=== PATIENT | female | born 1965 | race Two or more races ===

== ENCOUNTER 2024-04-06 11:57 | Emergency (ER) | payer MEDICAID, OTHER ==
[~2024-04-06] VITALS: Ht 167.6 cm; Wt 80.2 kg
[2024-04-06] MEDS ORDERED: IBUP-1456 PO (13:36)
[2024-04-06 13:41] VITALS: BP 148/87; PULSE 87; RESP 18; TEMP 98.6; O2SAT 98
== END 2024-04-06 13:44 | disposition home or self-care (01) ==
LOC: ER 11:57
DX: S20.211A Contusion of right front wall of thorax, initial encounter (principal); F17.210 Nicotine dependence, cigarettes, uncomplicated; V49.9XXA Car occupant (driver) (passenger) injured in unspecified traffic accident, initial encounter; W22.10XA Striking against or struck by unspecified automobile airbag, initial encounter; Y93.89 Activity, other specified; Y92.488 Other paved roadways as the place of occurrence of the external cause; Y99.8 Other external cause status
CPT/HCPCS: 71046

== ENCOUNTER 2024-08-29 16:08 | Emergency (ER) | payer MEDICAID, OTHER ==
[~2024-08-29] VITALS: Ht 167.6 cm; Wt 81.2 kg
[~2024-08-29 16:08] MED LIST: IBUP-1456 PO
[2024-08-29] MEDS ORDERED: TRAM-626 PO (17:16)
--- NOTE | 2024-08-29 17:21 | ED.PDOC ---
History of Present Illness HPI Comments 59-year-old female who comes in with chief complaint of right-sided back pain. The pain started yesterday as she was playing with her granddaughter. The pain is now radiating somewhat down the right leg. The patient denies any nausea, vomiting or diarrhea. The patient states that she went to work and seems to aggravate it. The patient denies any other complaints at this time. Chief Complaint: Lower Extremity Time Seen by MD: 16:57 Primary Care Provider: NONE Reviewed Notes: Nurses Notes, Medications, Allergies (No allergies to medications) Allergies: Coded Allergies: NO KNOWN ALLERGIES (Unverified , 04/06/24) Home Meds Active Scripts Tramadol HCl (Tramadol HCl) 50 Mg Tab, 50 MG PO Q12HP PRN for 7 Days, #14 TAB Prov:DANNY WALDEN MD 08/29/24 Ibuprofen (Ibuprofen) 800 Mg Tab, 1 TAB PO TID, #30 TAB Prov:HIGINIO QUINTERO 04/06/24 Information Source: Patient Mode of Arrival: Ambulatory Severity: Mild Timing: Days Duration: Since onset Prehospital treatment: None Location: Right buttocks pain Past Medical History PAST MEDICAL HISTORY: HTN Surgical History: Denies all surgeries ZINC PLATE GRAINER History: No Pertinent ZINC PLATE GRAINER History Family History Family History: Family hx of HTN Social History Smoker: Other (VAPE) Alcohol: Denies ETOH Use Drugs: Denies Drug Use Lives In: Home Constitutional: denies: chills, diaphoresis, fatigue, fever, malaise, sweats, weakness, others EENTM: denies: blurred vision, double vision, ear bleeding, ear discharge, ear drainage, ear pain, ear ringing, eye pain, eye redness, hearing loss, mouth faith n, mouth swelling, nasal discharge, nose bleeding, nose congestion, nose pain, photophobia, tearing, throat pain, throat swelling, voice changes, others Respiratory: denies: cough, hemoptysis, orthopnea, SOB at rest, shortness of breath, SOB with excertion, stridor, wheezing, others Cardiovascular: denies: chest pain, dizzy spells, diaphoresis, Dyspnea on exertion, edema, irregular heart beat, left arm pain, lightheadedness, palpitations, PND, syncope, others Gastrointestinal: denies: abdomen distended, abdominal pain, blood streaked bowels, constipated, diarrhea, dysphagia, difficulty swallowing, hematemesis, melena, nausea, poor appetite, poor fluid intake, rectal bleeding, rectal pain, vomiting, others Genitourinary: denies: abnormal vagina bleeding, burning, dyspareunia, dysuria, flank pain, frequency, hematuria, incontinence, pain, , vagina discharge, urgency, others Neurological: denies: dizziness, fainting, headache, left sided numbness, left sided weakness, numbness, paresthesia, pre-existing deficit, right sided numbness, right sided weakness, seizure, speech problems, tingling, tremors, weakness, others Musculoskeletal: reports: back pain; denies: gout, joint pain, joint swelling, muscle pain, muscle stiffness, neck pain, others Integumetry: denies: bruises, change in color, change in hair/nails, dryness, laceration, lesions, lumps, rash, wounds, others Allergic/Immunocompromised: denies: Difficulty Healing, Frequent Infections, Hives, Itching, others Hematologic/Lymphatic: denies: anemia, blood clots, easy bleeding, easy bruisin g, swollen glands, others Endocrine: denies: excessive hunger, excessive sweating, excessive thirst, excessive urination, flushing, intolerance to cold, intolerance to heat, unexplained weight gain, unexplained weight loss, others Psychiatric: denies: anxiety, bipolar disorder, depression, hopeless, panic disorder, schizophrenia, sleepless, suicidal, others Physical Exam General Appearance: No Apparent Distress HEENT: Normal ENT Inspection, Pharynx Normal, TMs Normal Neck: Full Range of Motion, Non-Tender, Normal, Normal Inspection Respiratory: Chest Non-Tender, Lungs Clear, No Accessory Muscle Use, No Respiratory Distress, Normal Breath Sounds Cardiovascular: No Edema, No JVD, No Murmur, No Gallop, Normal Peripheral Pul ses, Regular Rate/Rhythm Breast Exam: Deferred Gastrointestinal: No Organomegaly, Non Tender, No Pulsatile Mass, Normal Bowel Sounds, Soft Genitalia: Deferred Pelvic: Deferred Rectal: Deferred Extremities: No calf tenderness, Normal capillary refill, No pedal edema, Tender (Tenderness to the right buttocks area) Musculoskeletal : Apperance: Normal Neurologic: Alert, stitch bonding machine tender II-XII nml as Tested, No Motor Deficits, Normal Affect, Normal Mood, No Sensory Deficits Cerebellar Function: Normal Reflexes: Normal Skin: Dry, Normal Color, Warm Lymphatic: No Adenopathy Was a procedure done? Was a procedure done?: No Differential Dx Considerations may include: Sciatica, musculoskeletal pain X-Ray, Labs, Meds, VS Vital Signs Date Time Temp Pulse Resp B/P (MAP) Pulse Ox O2 Delivery O2 Flow Rate FiO2 08/29/24 16:21 97.7 103 18 169/95 (119) 95 The patient was given Toradol 60 mg IM The patient was being discharged The patient will follow up with the primary care doctor The patient will return to the emergency department's the condition worsens. Time of 1ST Reevaluation: 17:20 Reevaluation 1ST: Improved Patient Education/Counseling: Diagnosis, Treatment, Prognosis, Need For Follow Up Family Education/Counseling: No Family Present Departure 1 Departure Time of Disposition: 17:20 Impression: Primary Impression: Sciatica Qualified Codes: M54.31 - Sciatica, right side Disposition: HOME / SELF CARE / HOMELESS Condition: Fair e-Prescriptions Tramadol HCl (Tramadol HCl) 50 Mg Tab 50 MG PO Q12HP PRN for 7 Days, #14 TAB Prov: DANNY WALDEN MD 08/29/24 Discharged With: Self Critical Care Note Critical Care Time?: No Stability Stability form required: No Heart Score Heart Score: Heart Score Response (Comments) Value History N/A 0 EKG N/A 0 Age N/A 0 Risk Factors N/A 0 Troponin N/A 0 Total 0 DANNY WALDEN MD Aug 29, 2024 17:21
[2024-08-29] MEDS: KETOROLAC TROMETH 60MG/2ML VIAL IM ONE (17:59)
[2024-08-29] MEDS: cloNIDine HCL 0.1 MG TAB PO ONE (18:19)
[2024-08-29 19:26] VITALS: BP 125/82; PULSE 94; RESP 18; TEMP 97.4; O2SAT 96
== END 2024-08-29 19:31 | disposition home or self-care (01) ==
LOC: ER 16:08
DX: M54.30 Sciatica, unspecified side (principal); I10 Essential (primary) hypertension; F17.290 Nicotine dependence, other tobacco product, uncomplicated
CPT/HCPCS: 96372; 99283; J1885

== ENCOUNTER 2025-03-04 08:49 | Inpatient (IN) | payer MEDICAID, OTHER ==
[~2025-03-04] VITALS: Ht 167.6 cm; Wt 77.7 kg
[~2025-03-04 08:49] MED LIST changes: +TRAM-626 PO
[2025-03-04 09:57] LABS: Hematocrit 46.1 % (36.0-46.0); Hemoglobin 16.1 g/dL (12.2-16.2); Mean Corpuscular Hemoglobin 31.4 pg (28.0-32.0); Mean Corpuscular Volume 89.7 fL (80.0-100.0); Nucleated Red Blood Cells % 0.1 %
--- NOTE | 2025-03-04 09:59 | ED.PDOC ---
REFERRAL COORDINATOR HPI Comments This is a 59 year old female presenting to the ED with chief complaint of vaginal bleeding. Patient reports that she started to experience vaginal bleeding after sexual activity over the past 2 days. Patient relays that her BP has also been running high, noting that she ran out of BP medication a few weeks ago. Patient denies any chest pain, SOB, dizziness, N/V, weakness, or headache. Chief Complaint: Vaginal Bleed Time Seen by MD: 09:57 Reviewed Notes: Nurses Notes, Financial Business Analyst Notes, Allergies Allergies: Coded Allergies: NO KNOWN ALLERGIES (Unverified , 04/06/24) Home Meds Active Scripts Nitrofurantoin Monohydrate Mac (Macrobid) 100 Mg Cap, 100 MG PO BID for 5 Days, #10 CAP Prov:ERIN ISLAS MD 03/04/25 Amlodipine Besylate (NORVASC TABLET) 5 Mg Tb, 1 TAB PO DAILY for 10 Days, #10 TAB 5 Refills Prov:ERIN ISLAS MD 03/04/25 Tramadol HCl (Tramadol HCl) 50 Mg Tab, 50 MG PO Q12HP PRN for 7 Days, #14 TAB Prov:DANNY WALDEN MD 08/29/24 Ibuprofen (Ibuprofen) 800 Mg Tab, 1 TAB PO TID, #30 TAB Prov:HIGINIO QUINTERO 04/06/24 Information Source: Patient Mode of Arrival: Ambulatory Timing: Days Prehospital treatment: None Severity: Mild Vaginal Discharge: None Vaginal Lesions: None Bleeding Quality: Bright Red Onset Of Mass/Bleeding: Following [place] Sexual Activity: Sexually Active Last Consensual [place]: Days Control: None Associated Signs and Symptoms: Vaginal Bleeding Past Medical History PAST MEDICAL HISTORY: HTN Surgical History: Denies all surgeries PRECAST MOLDER History: No Pertinent PRECAST MOLDER History Family History Family History: Family hx of HTN Social History Smoker: Other Alcohol: Denies ETOH Use Drugs: Denies Drug Use Lives In: Home Constitutional: denies: chills, diaphoresis, fatigue, fever, malaise, sweats, weakness, others EENTM: denies: blurred vision, double vision, ear bleeding, ear discharge, ear drainage, ear pain, ear ringing, eye pain, eye redness, hearing loss, mouth pain, mouth swelling, nasal discharge, nose bleeding, nose congestion, nose pain, photophobia, tearing, throat pain, throat swelling, voice changes, others Respiratory: denies: cough, hemoptysis, orthopnea, SOB at rest, shortness of breath, SOB with excertion, stridor, wheezing, others Cardiovascular: denies: chest pain, dizzy spells, diaphoresis, Dyspnea on exertion, edema, irregular heart beat, left arm pain, lightheadedness, palpitations, PND, syncope, others Gastrointestinal: denies: abdomen distended, abdominal pain, blood streaked bowels, constipated, diarrhea, dysphagia, difficulty swallowing, hematemesis, melena, nausea, poor appetite, poor fluid intake, rectal bleeding, rectal pain, vomiting, others Genitourinary: reports: abnormal vagina bleeding; denies: burning, dyspareunia, dysuria, flank pain, frequency, hematuria, incontinence, pain, , vagina discharge, urgency, others Neurological: denies: dizziness, fainting, headache, left sided numbness, left sided weakness, numbness, paresthesia, pre-existing deficit, right sided numbness, right sided weakness, seizure, speech problems, tingling, tremors, weakness, others Musculoskeletal: denies: back pain, gout, joint pain, joint swelling, muscle pain, muscle stiffness, neck pain, others Integumetry: denies: bruises, change in color, change in hair/nails, dryness, laceration, lesions, lumps, rash, wounds, others Allergic/Immunocompromised: denies: Difficulty Healing, Frequent Infections, Hives, Itching, others Hematologic/Lymphatic: denies: anemia, blood clots, easy bleeding, easy bruising, swollen glands, others Endocrine: denies: excessive hunger, excessive sweating, excessive thirst, excessive urination, flushing, intolerance to cold, intolerance to heat, unexplained weight gain, unexplained weight loss, others Psychiatric: denies: anxiety, bipolar disorder, depression, hopeless, panic disorder, schizophrenia, sleepless, suicidal, others All Other Systems: Reviewed and Negative Physical Exam General Appearance: Moderate Distress, Normal HEENT: Normal ENT Inspection, Pharynx Normal, TMs Normal Neck: Full Range of Motion, Non-Tender, Normal, Normal Inspection Respiratory: Chest Non-Tender, Lungs Clear, No Accessory Muscle Use, No Respiratory Distress, Normal Breath Sounds Cardiovascular: No Edema, No JVD, No Murmur, No Gallop, Normal Peripheral Pulses, Regular Rate/Rhythm Breast Exam: Deferred Gastrointestinal: No Organomegaly, Non Tender, No Pulsatile Mass, Normal Bowel Sounds, Soft Genitalia: Deferred Pelvic: Deferred Rectal: Deferred Extremities: No calf tenderness, Normal capillary refill, Normal inspection, Normal range of motion, Non-tender, No pedal edema Musculoskeletal : Apperance: Normal Neurologic: Alert, vp ad products and planning II-XII nml as Tested, No Motor Deficits, Normal Affect, Normal Mood, No Sensory Deficits Cerebellar Function: Normal Reflexes: Normal Skin: Dry, Normal Color, Warm Peripheral Pulses: 3+ Radial (R), 3+ Radial (L) Lymphatic: No Adenopathy Was a procedure done? Was a procedure done?: No Differential Diagnosis (PRECAST MOLDER) Vaginal Bleeding: Menorrhagia, Menometrorrhagia, Menstrual Bleeding, Myomatous Uterus X-Ray, Labs, Meds, VS Vital Signs Date Time Temp Pulse Resp B/P (MAP) Pulse Ox O2 Delivery O2 Flow Rate FiO2 03/04/25 13:18 187/117 03/04/25 11:50 195/135 (155) 03/04/25 11:48 195/135 03/04/25 11:44 98.5 91 15 196/113 (140) 95 98.5 03/04/25 09:23 201/123 (149) 03/04/25 09:19 201/123 03/04/25 09:14 98.0 99 15 202/131 (154) 96 98.0 03/04/25 08:53 98.0 99 16 215/138 98 98.0 Lab Test 03/04/25 10:47 03/04/25 09:37 03/04/25 09:00 Range/Units Troponin I High Sensitivity 11 10 </=34 ng/L White Blood Count 6.2 4.4-10.8 10^3/uL Red Blood Count 5.14 4.0-5.20 10^6/uL Hemoglobin 16.1 12.2-16.2 g/dL Hematocrit 46.1 H 36.0-46.0 % Mean Corpuscular Volume 89.7 80.0-100.0 fL Mean Corpuscular Hemoglobin 31.4 28.0-32.0 pg Mean Corpuscular Hemoglobin Concent 35.0 32.0-36.0 g/dL Red Cell Distribution Width 13.2 11.8-14.3 % Platelet Count 303 140-450 10^3/uL Mean Platelet Volume 7.3 6.9-10.8 fL Neutrophils (%) (Auto) 60.6 37.0-80.0 % Lymphocytes (%) (Auto) 31.7 10.0-50.0 % Monocytes (%) (Auto) 6.3 0.0-12.0 % Eosinophils (%) (Auto) 1.1 0.0-7.0 % Basophils (%) (Auto) 0.3 0.0-2.0 % Neutrophils # (Auto) 3.7 1.6-8.6 10 ^3/uL Lymphocytes # (Auto) 2.0 0.4-5.4 10 ^3/uL Monocytes # (Auto) 0.4 0-1.3 10 ^3/uL Eosinophils # (Auto) 0.1 0-0.8 10 ^3/uL Basophils # (Auto) 0 0-0.2 10 ^3/uL Nucleated Red Blood Cells 0.1 % Sodium Level 140 136-145 mmol/L Potassium Level 3.3 L 3.5-5.1 mmol/L Chloride Level 101 98-107 mmol/L Carbon Dioxide Level 32 H 20-31 mmol/L Anion Gap 7 5-15 Blood Urea Nitrogen 10 9-23 mg/dL Creatinine 0.87 0.550-1.02 mg/dL Glomerular Filtration Rate Calc 77 >90 mL/min BUN/Creatinine Ratio 11.5 10.0-20.0 Serum Glucose 91 74-106 mg/dL Calcium Level 9.5 8.7-10.4 mg/dL Urine Color Light-yellow Yellow Urine Clarity Clear Clear Urine pH 7.0 5.0-9.0 Urine Specific [place] 1.011 1.001-1.035 Urine Protein Trace H Negative Urine Ketones Negative Negative Urine Blood Trace H Negative /uL Urine Nitrite Negative Negative Urine Bilirubin Negative Negative Urine Urobilinogen Normal Negative mg/dL Urine Leukocyte Esterase Trace Negative /uL Urine RBC 7 0 - 4 /hpf Urine Microscopic WBC 7 H 0-5 /HPF Urine Squamous Epithelial Cells Few <5 /hpf Urine Bacteria None seen None Seen /hpf Urine Yeast (Budding) Occasional None Seen /hpf Urine Glucose 1+ H Normal mg/dL Current Medications Medications (Trade) Dose Ordered Sig/[place] Route Start Time Stop Time Status Last Admin Amlodipine Besylate (Norvasc Tablet) 10 mg ONCE ONCE PO 03/04/25 09:00 03/04/25 09:01 DC 03/04/25 09:19 Clonidine HCl (Catapres Tablet) 0.2 mg ONCE ONCE PO 03/04/25 11:45 03/04/25 11:46 DC 03/04/25 11:48 Patient alert. Complaining of vaginal bleeding on physical activity. Vitals stable. Answering all questions. Blood pressure elevated. She has not been taking her blood pressure medication. She was given Norvasc. Urinalysis shows mild urinary tract infection. Was given prescription of Norvasc Macrobid antibiotic. Was told to follow up with her primary care physician. Was told to come back if there is any problem. Blood pressure continues to be high. Echocardiogram. Explained to the patient. Continue monitoring. Time of 1ST Reevaluation: 10:57 Reevaluation 1ST: Unchanged Patient Education/Counseling: Diagnosis, Treatment Family Education/Counseling: No Family Present Departure 1 Departure Time of Disposition: 11:32 Impression: Primary Impression: Hypertensive emergency Additional Impression: UTI (urinary tract infection) Qualified Codes: N30.00 - Acute cystitis without hematuria Disposition: ADMITTED INPATIENT Admit to: Med Surg Condition: Guarded e-Prescriptions Nitrofurantoin Monohydrate Mac (Macrobid) 100 Mg Cap 100 MG PO BID for 5 Days, #10 CAP Prov: ERIN ISLAS MD 03/04/25 Amlodipine Besylate (NORVASC TABLET) 5 Mg Tb 1 TAB PO DAILY for 10 Days, #10 TAB 5 Refills Prov: ERIN ISLAS MD 03/04/25 Critical Care Note Critical Care Time?: No Stability Stability form required: No Heart Score Heart Score: Heart Score Response (Comments) Value History N/A 0 EKG N/A 0 Age N/A 0 Risk Factors N/A 0 Troponin N/A 0 Total 0 I personally scribed for ERIN ISLAS MD ([email or web address]) on 03/04/25 at 09:59. Electronically submitted by James Short ([email or web address]). ERIN ISLAS MD Mar 04, 2025 09:59
[2025-03-04 10:03] LABS: Urine Budding Yeast OCCASIONAL /hpf (None Seen); Urine Protein, UAD TRACE (Negative)
[2025-03-04 10:07] LABS: Chloride 101 mmol/L (98-107); Sodium 140 mmol/L (136-145)
[2025-03-04 10:08] LABS: Anion Gap 7 (5-15); Calcium 9.5 mg/dL (8.7-10.4); Carbon Dioxide 32 mmol/L (20-31); Potassium 3.3 mmol/L (3.5-5.1)
[2025-03-04 10:13] LABS: BUN/Creatinine Ratio 11.5 (10.0-20.0); Blood Urea Nitrogen 10 mg/dL (9-23); Glucose 91 mg/dL (74-106)
[2025-03-04] MEDS ORDERED: NITR-87 PO (11:35)
[2025-03-04] MEDS ORDERED: AML5T PO (11:35)
[2025-03-04] MEDS ORDERED: LISINOPRIL 5 MG TAB PO ONE (13:30)
[2025-03-04] MEDS ORDERED: LISI40TA16 PO (15:14)
[2025-03-04] MEDS ORDERED: DOCUSATE SOD 100 MG CAP PO PRN (15:15)
[2025-03-04] MEDS ORDERED: hydrALAZINE HCL 20 MG/ML VL IV PRN (15:15)
[2025-03-04] MEDS ORDERED: MORPHINE SULFATE INJ 2 MG/ml SYRG IV PRN (15:15)
[2025-03-04] MEDS ORDERED: ONDANSETRON HCL 4 MG/2 ML VIAL IV PRN (15:15)
[2025-03-04] MEDS ORDERED: NITROGLYCERIN 0.4 MG SL TAB SL PRN (15:15)
--- NOTE | 2025-03-04 15:25 | DVHHP2 ---
History of Present Illness Reason for Visit: Vaginal bleeding History of Present Illness Edna Ortez is a 59-year-old female with past medical history of hypertension, who came to the hospital for vaginal bleeding. Patient states that she has not had sex in years then she had sex about 1 week ago and she had vaginal bleeding for a day. Then she had sex last Tuesday03/02/2025 and she had increased vaginal bleeding with clots that lasted about a day as well. She became concerned and came to the hospital. While in the ER it was discovered that her blood pressure was elevated. Patient states she has been out of her antihypertensive medications for about 1 month. Cardiovascular: HTN Past Surgical History: (x 1) Smoke: <1 pack per day (Vape) ALCOHOL: rare Drugs: None Lives: with Family Review of Systems Constitutional: No: Fever, Chills, Sweats, Weakness, Malaise, Other Eyes: No: Pain, Vision change, Conjunctivae inflammation, Eyelid inflammation, Other, Redness ENT: No: Ear pain, Ear discharge, Nose pain, Nose discharge, Nose congestion, Mouth pain, Mouth swelling, Throat pain, Throat swelling, Other Respiratory: No: Cough, Dry, Shortness of breath, SOB with excertion, Wheezing, Hemoptysis, Pleuritic Pain, Sputum, Wheezing, Other Cardiovascular: No: Chest Pain, Palpitations, Orthopnea, Paroxysmal Noc. Dyspnea, Edema, Lt Headedness, Other Gastrointestinal: No: Nausea, Vomiting, Abdominal Pain, Diarrhea, Constipation, Melena, Hematochezia, Other Genitourinary: No Dysuria, No Frequency, No Incontinence, No Hematuria, No Retention, No Other Musculoskeletal: No: other, neck pain, shoulder pain, arm pain, back pain, hand pain, leg pain, foot pain Skin: No: Rash, Lesions, Jaundice, Bruising, Other Neurological: No: Weakness, Numbness, Incoordination, Change in speech, Confusion, Seizures, Other Allergies: Coded Allergies: NO KNOWN ALLERGIES (Unverified , 04/06/24) Medications Current Medications Medications Dose Ordered Sig/Marilu Route Start Time Stop Time Status Last Admin Dose Admin Sodium Chloride 10 ml Q8HR IV 03/04/25 22:00 UNV Exam Vital Signs Vital Signs Date Time Temp Pulse Resp B/P (MAP) Pulse Ox O2 Delivery O2 Flow Rate FiO2 03/04/25 14:35 86 03/04/25 13:23 16 95 Room Air 03/04/25 13:23 98.4 187/117 (140) 98.4 General Appearance: Alert, Oriented X3, Cooperative, mild distress HEENT: Atraumatic, PERRLA Respiratory: Clear to auscultation, Normal air movement Cardiovascular: Regular rate, Normal S1, Normal S2 Abdominal: Normal bowel sounds, Soft, No tenderness Extremities: No clubbing, No cyanosis, Normal pulses Skin: No rashes, No significant lesion Neuro: Normal gait, Normal speech, Strength at 5/5 X4 ext, Normal tone Psych/Mental Status: Mental status NL, Mood NL Labs/Xrays Labs Test 03/04/25 10:47 03/04/25 09:37 03/04/25 09:00 Range/Units Troponin I High Sensitivity 11 </=34 ng/L White Blood Count 6.2 4.4-10.8 10^3/uL Red Blood Count 5.14 4.0-5.20 10^6/uL Hemoglobin 16.1 12.2-16.2 g/dL Hematocrit 46.1 H 36.0-46.0 % Mean Corpuscular Volume 89.7 80.0-100.0 fL Mean Corpuscular Hemoglobin 31.4 28.0-32.0 pg Mean Corpuscular Hemoglobin Concent 35.0 32.0-36.0 g/dL Red Cell Distribution Width 13.2 11.8-14.3 % Platelet Count 303 140-450 10^3/uL Mean Platelet Volume 7.3 6.9-10.8 fL Neutrophils (%) (Auto) 60.6 37.0-80.0 % Lymphocytes (%) (Auto) 31.7 10.0-50.0 % Monocytes (%) (Auto) 6.3 0.0-12.0 % Eosinophils (%) (Auto) 1.1 0.0-7.0 % Basophils (%) (Auto) 0.3 0.0-2.0 % Neutrophils # (Auto) 3.7 1.6-8.6 10 ^3/uL Lymphocytes # (Auto) 2.0 0.4-5.4 10 ^3/uL Monocytes # (Auto) 0.4 0-1.3 10 ^3/uL Eosinophils # (Auto) 0.1 0-0.8 10 ^3/uL Basophils # (Auto) 0 0-0.2 10 ^3/uL Nucleated Red Blood Cells 0.1 % Sodium Level 140 136-145 mmol/L Potassium Level 3.3 L 3.5-5.1 mmol/L Chloride Level 101 98-107 mmol/L Carbon Dioxide Level 32 H 20-31 mmol/L Anion Gap 7 5-15 Blood Urea Nitrogen 10 9-23 mg/dL Creatinine 0.87 0.550-1.02 mg/dL Glomerular Filtration Rate Calc 77 >90 mL/min BUN/Creatinine Ratio 11.5 10.0-20.0 Serum Glucose 91 74-106 mg/dL Calcium Level 9.5 8.7-10.4 mg/dL Urine Color Light-yellow Yellow Urine Clarity Clear Clear Urine pH 7.0 5.0-9.0 Urine Specific [place] 1.011 1.001-1.035 Urine Protein Trace H Negative Urine Ketones Negative Negative Urine Blood Trace H Negative /uL Urine Nitrite Negative Negative Urine Bilirubin Negative Negative Urine Urobilinogen Normal Negative mg/dL Urine Leukocyte Esterase Trace Negative /uL Urine RBC 7 0 - 4 /hpf Urine Microscopic WBC 7 H 0-5 /HPF Urine Squamous Epithelial Cells Few <5 /hpf Urine Bacteria None seen None Seen /hpf Urine Yeast (Budding) Occasional None Seen /hpf Urine Glucose 1+ H Normal mg/dL AP portable chest FINDINGS: Heart size is enlarged. The aorta is tortuous. No infiltrates or effusions IMPRESSION: 1. No acute cardiopulmonary pathology SEPSIS Sepsis Screen Date sepsis recognized/suspect: Mar 04, 2025 Time Sepsis recognized/suspect: 0854 Recent Procedure: No On Antibiotic Therapy: No Respiratory Rate >20: No Heart Rate >90: No Temp<36 C (96.8 F) or >38.3 C: No SBP <90 or MAP <65 mmHG: No New Acute Mental Status Change: No Is the patient on CPAP, BIPAP,: No Physician Orders Nitroglycerin 50mg/250ml (Tridil) (03/04/25 13:30) Lisinopril Tablet (Zestril Tablet) (03/04/25 15:15) Admit (03/04/25 15:11) Code Status (03/04/25 15:11) 2 Gm Sodium Diet (03/04/25 Dinner) Sodium Chloride Lock (Saline Lock Ns) (03/04/25 22:00) Ondansetron Hcl (Zofran) (03/04/25 15:15) Docusate Sodium Capsule (Colace Capsule) (03/04/25 15:15) Complete Blood Count (03/05/25 04:00) Comprehensive Metabolic Panel (03/05/25 04:00) Condition: Serious (03/04/25 15:11) Acetaminophen Tablet (Tylenol Tablet) (03/04/25 15:15) Nitroglycerin Sublingual (Ntrostat Subli (03/04/25 15:15) Morphine Sulfate Injection (03/04/25 15:15) Stat Ekg For Chest Pain (03/04/25 15:11) Notify Md Of Changes From Base (03/04/25 15:11) 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 (03/04/25 15:11) Emergency Dysrhythmia Protocol (03/04/25 15:11) Rhythm Strips Once Every Shift (03/04/25 15:11) Oxygen By Nasal Cannula (03/04/25 15:11) Amlodipine Tablet (Norvasc Tablet) (03/05/25 10:00) (Nf) Lisinopril (03/05/25 10:00) Hydralazine Injection (Apresoline Inject (03/04/25 15:15) Vital Signs Date Time Temp Pulse Resp B/P (MAP) Pulse Ox O2 Delivery O2 Flow Rate FiO2 03/04/25 14:35 86 03/04/25 13:23 93 16 95 Room Air 03/04/25 13:23 98.4 93 16 187/117 (140) 94 98.4 03/04/25 13:18 187/117 03/04/25 11:50 195/135 (155) 03/04/25 11:48 195/135 03/04/25 11:44 98.5 91 15 196/113 (140) 95 98.5 03/04/25 09:23 201/123 (149) 03/04/25 09:19 201/123 03/04/25 09:14 98.0 99 15 202/131 (154) 96 98.0 03/04/25 08:53 98.0 99 16 215/138 98 98.0 Laboratory Tests Test 03/04/25 09:37 White Blood Count 6.2 10^3/uL (4.4-10.8) Medications Medications Dose Ordered Sig/Marilu Route Start Time Stop Time Status Last Admin Dose Admin Amlodipine Besylate 10 mg ONCE ONCE PO 03/04/25 09:00 03/04/25 09:01 DC 03/04/25 09:19 10 MG Clonidine HCl 0.2 mg ONCE ONCE PO 03/04/25 11:45 03/04/25 11:46 DC 03/04/25 11:48 0.2 MG Assessment/Plan Assessment/Plan Assessment: Hypertensive emergency, Vaginal bleeding, Plan: Admit to Tele, ECHO, Consider cardiology consult if symptoms persist, Home medications reconciled, PRN antihypertensives, Chest X-ray, Consider BOOSTER PUMP OILER consult, Pelvic ultrasound, Plan discussed with: Patient My Orders Orders - MALATHI ANTHONY Procedure Category Date Status Time Lisinopril Tablet PHA 03/04/25 Logged (Zestril Tablet) 15:15 Admit ADMIT 03/04/25 Transmitted 15:11 Code Status CODE 03/04/25 Transmitted 15:11 2 Gm Sodium Diet DIET 03/04/25 Transmitted Dinner Sodium Chloride Lock PHA 03/04/25 Logged (Saline Lock Ns) 22:00 Ondansetron Hcl PHA 03/04/25 Transmitted (Zofran) 15:15 Docusate Sodium [facility] 03/04/25 Transmitted Capsule (Colace 15:15 Complete Blood Count LAB 03/05/25 Verified 04:00 Comprehensive LAB 03/05/25 Verified Metabolic Panel 04:00 Condition: Serious [facility] 03/04/25 In Process 15:11 Acetaminophen Tablet [facility] 03/04/25 Transmitted (Tylenol Tablet) 15:15 Nitroglycerin PHA 03/04/25 Transmitted Sublingual (Ntrostat 15:15 Morphine Sulfate PH[facility] 03/04/25 Transmitted Injection 15:15 Stat Ekg For Chest [facility] 03/04/25 In Process Pain 15:11 Notify Of Changes [facility] 03/04/25 In Process From Base 15:11 Repair Electric Motor Assembler For [facility] 03/04/25 In Process 24 Hours 15:11 Emergency Dysrhythmia [facility] 03/04/25 In Process Protocol 15:11 Rhythm Strips Once [facility] 03/04/25 In Process Every Shift 15:11 Oxygen By Nasal RT 03/04/25 Transmitted Cannula 15:11 Amlodipine Tablet [facility] 03/05/25 Verified (Norvasc Tablet) 10:00 (Nf) Lisinopril PHA 03/05/25 Verified 10:00 Hydralazine Injection PH[facility] 03/04/25 Verified (Apresoline Inject 15:15 Date of Service: Mar 04, 2025 Billing Provider: MALATHI ANTHONY Common Visit Codes: [id number] INP/OBS CARE (MOD) MALATHI ANTHONY Mar 04, 2025 15:25
[2025-03-04] MEDS: NITROGLYCERIN 50MG/250ML 250 ML IV ONE (16:21)
[2025-03-04] MEDS: LISINOPRIL 20 MG TAB PO ONE (16:21)
--- NOTE | 2025-03-04 16:23 | DVH ---
AP portable chest CLINICAL INDICATION: uncontrolled hypertension FINDINGS: Heart size is enlarged. The aorta is tortuous. No infiltrates or effusions IMPRESSION: 1. No acute cardiopulmonary pathology
--- NOTE | 2025-03-04 18:06 | ECG ---
[facility] Test Date: 2025-03-04 Test Time: 14:30:22 Pat Name: FUNMI GUAJARDO Department: [facility] ED Patient ID: [facility]-[id number] Room: [address] [place] [address] Gender: F Home Health Care Physician: rudy : 1965 Requested By: ERIN ISLAS Order Number: [id number] Reading MD: Cal Osborn Measurements Intervals [place] Rate: 84 P: 65 DE: 171 QRS: -27 QRSD: 139 T: 59 QT: 417 QTc: 493 Interpretive Statements Sinus rhythm Right atrial enlargement Left bundle branch block Electronically Signed On 03-06-2025 18:43:46 PDT by Cal Osborn Please click the below link to view image of tracing.
[2025-03-04 21:26] VITALS: BP 123/86; PULSE 84; RESP 17; TEMP 97.9; O2SAT 95
--- NOTE | 2025-03-04 21:30 | DVH ---
PELVIC ULTRASOUND WITH TRANSABDOMINAL AND TRANSVAGINAL IMAGING CLINICAL HISTORY: Vaginal bleeding COMPARISON: None TECHNIQUE: Transabdominal and transvaginal grayscale, color-flow Doppler, and duplex Doppler was per formed. FINDINGS: The uterus measures approximately 5.7 x 2.6 x 3.6 cm. Endometrial thickness 2.1 mm. The ovaries are not visualized. No free fluid identified in the cul-de-sac IMPRESSION: The ovaries are not identified. Otherwise no acute findings as visualized. HS:Y
[2025-03-04 21:56] VITALS: BP 123/86; PULSE 84; RESP 17; TEMP 97.9; O2SAT 95
[2025-03-04] MEDS: SODIUM CHLOR 0.9% PF (SALINE LOCK) 10ML VIAL/SYR IV SCH (22:00)
[2025-03-04] MEDS: ACETAMINOPHEN 325 MG TAB PO PRN (23:35)
[2025-03-05 01:30] VITALS: BP 127/89; PULSE 74; RESP 16; TEMP 97.9; O2SAT 94
[2025-03-05 05:30] VITALS: BP 126/83; PULSE 72; RESP 16; TEMP 96.6; O2SAT 98
[2025-03-05 06:57] LABS: Hematocrit 43.2 % (36.0-46.0); Hemoglobin 15.3 g/dL (12.2-16.2); Mean Corpuscular Hemoglobin 31.5 pg (28.0-32.0); Mean Corpuscular Volume 89.2 fL (80.0-100.0); Nucleated Red Blood Cells % 0.1 %
[2025-03-05 07:06] LABS: Alanine Aminotransferase 21 U/L (7-40); Alkaline Phosphatase 77 U/L (46-116); Anion Gap 9 (5-15); BUN/Creatinine Ratio 16.9 (10.0-20.0); Blood Urea Nitrogen 14 mg/dL (9-23); Calcium 9.4 mg/dL (8.7-10.4); Carbon Dioxide 30 mmol/L (20-31); Chloride 102 mmol/L (98-107); Glucose 90 mg/dL (74-106); Sodium 141 mmol/L (136-145); Total Protein 6.4 g/dL (5.7-8.2)
[2025-03-05 07:07] LABS: Albumin 4.2 g/dL (3.2-4.8); Bilirubin, Total 1.1 mg/dL (0.2-1.0)
[2025-03-05 07:23] LABS: Potassium 3.5 mmol/L (3.5-5.1)
[2025-03-05 08:00] VITALS: PULSE 77; PULSE 87; RESP 20; O2SAT 96
[2025-03-05 09:00] VITALS: BP 148/92; PULSE 87; RESP 20; TEMP 98.1; O2SAT 96
[2025-03-05] MEDS: LISINOPRIL 20 MG TAB PO SCH (09:44)
[2025-03-05] MEDS ORDERED: PATIENTS OWN MEDICATION (Lisinopril 1 TAB) PO SCH (10:00)
--- NOTE | 2025-03-05 12:06 | DVHSR ---
APPROVED REPORT EXAM: Two-dimensional and M-mode echocardiogram with Doppler and color Doppler. Blood Pressure: 187/117 mmHg INDICATION Uncontrolled hypertension RISK FACTORS Height: 5'6", Weight: 168 DIMENSIONS LVDd3.7 (3.8-5.7cm)LA (2D)3.4 (1.9-4.0cm)Aortic Root3.3 (2.0-3.7cm) LVDs2.7 (2.5-4.0cm)LA (MM) (1.9-4.0cm)Aortic Cusp Exc2.1 (1.5-2.0cm) EF (%) 60.0 (55-70%)Rt. Atrium3.1 (1.9-4.0cm)Asc. Aorta cm IVSd1.4 (0.7-1.1cm)RV (D) (1.8-2.4cm) PWd1.4 (0.7-1.1cm) Mitral Valve MitralMitral Stenosis E wave1.07m/sMV Mean GR.mmHg E/A ratio0.02D MVAcm2 Aortic Valve Aortic ValveAortic Stenosis V10.74m/Thad Mean GR.2mmHg V20.96m/Thad Peak GR.4mmHg LVOT Diameter2.1 (1.8-2.4cm)Doppler AVA2.67cm2 Other Information Technically limited study due to body habitus. Conclusion lvef 55% moderate LVh cannot rule out anteroseptal hypokinesis WMA normal RV function, borderline enlarged no severe valve abnormalities noted
[2025-03-05] MEDS ORDERED: AML5T PO (12:48)
--- NOTE | 2025-03-05 12:50 | DVHDS2 ---
Discharge Summary Date of Admission Mar 04, 2025 at 15:11 Date of Discharge: Mar 05, 2025 Admitting Diagnosis Hypertensive emergency, Vaginal bleeding, Labs/Diagnostic Data: Laboratory Results Test 03/05/25 05:41 03/04/25 10:47 03/04/25 09:00 White Blood Count 4.8 10^3/uL (4.4-10.8) Red Blood Count 4.85 10^6/uL (4.0-5.20) Hemoglobin 15.3 g/dL (12.2-16.2) Hematocrit 43.2 % (36.0-46.0) Mean Corpuscular Volume 89.2 fL (80.0-100.0) Mean Corpuscular Hemoglobin 31.5 pg (28.0-32.0) Mean Corpuscular Hemoglobin Concent 35.4 g/dL (32.0-36.0) Red Cell Distribution Width 13.3 % (11.8-14.3) Platelet Count 261 10^3/uL (140-450) Mean Platelet Volume 7.6 fL (6.9-10.8) Neutrophils (%) (Auto) 55.2 % (37.0-80.0) Lymphocytes (%) (Auto) 34.2 % (10.0-50.0) Monocytes (%) (Auto) 8.1 % (0.0-12.0) Eosinophils (%) (Auto) 2.1 % (0.0-7.0) Basophils (%) (Auto) 0.4 % (0.0-2.0) Neutrophils # (Auto) 2.7 10 ^3/uL (1.6-8.6) Lymphocytes # (Auto) 1.7 10 ^3/uL (0.4-5.4) Monocytes # (Auto) 0.4 10 ^3/uL (0-1.3) Eosinophils # (Auto) 0.1 10 ^3/uL (0-0.8) Basophils # (Auto) 0 10 ^3/uL (0-0.2) Nucleated Red Blood Cells 0.1 % Sodium Level 141 mmol/L (136-145) Potassium Level 3.5 mmol/L (3.5-5.1) Chloride Level 102 mmol/L (98-107) Carbon Dioxide Level 30 mmol/L (20-31) Anion Gap 9 (5-15) Blood Urea Nitrogen 14 mg/dL (9-23) Creatinine 0.83 mg/dL (0.550-1.02) Glomerular Filtration Rate Calc 82 mL/min (>90) BUN/Creatinine Ratio 16.9 (10.0-20.0) Serum Glucose 90 mg/dL (74-106) Calcium Level 9.4 mg/dL (8.7-10.4) Total Bilirubin 1.1 mg/dL (0.2-1.0) Aspartate Amino Transferase (AST) 22 U/L (13-40) Alanine Aminotransferase (ALT) 21 U/L (7-40) Alkaline Phosphatase 77 U/L (46-116) Total Protein 6.4 g/dL (5.7-8.2) Albumin 4.2 g/dL (3.2-4.8) Troponin I High Sensitivity 11 ng/L (</=34) Urine Color Light-yellow (Yellow) Urine Clarity Clear (Clear) Urine pH 7.0 (5.0-9.0) Urine Specific Adrian 1.011 (1.001-1.035) Urine Protein Trace (Negative) Urine Ketones Negative (Negative) Urine Blood Trace /uL (Negative) Urine Nitrite Negative (Negative) Urine Bilirubin Negative (Negative) Urine Urobilinogen Normal mg/dL (Negative) Urine Leukocyte Esterase Trace /uL (Negative) Urine RBC 7 /hpf (0 - 4) Urine Microscopic WBC 7 /HPF (0-5) Urine Squamous Epithelial Cells Few /hpf (<5) Urine Bacteria None seen /hpf (None Seen) Urine Yeast (Budding) Occasional /hpf (None Urine Glucose 1+ mg/dL (Normal) Other Laboratory Tests 03/05/25 05:41 Brief Hx & Hospital Course: This is a 59 years old female with past medical history hypertension come to emergency department with chief complaint of vaginal bleed. Patient stated she had not have sex for long time however she started having sex with her new partner about a week ago and started having severe vaginal bleed for a day. According to her she had sex on last Tuesday prior to admission and she started having vaginal bleed with clots that lasts about a day as well. Her hemoglobin is stable. She had been menopause for at least eight years. Never had any vaginal bleed before. The patient was given IV hypertensive medication. She stated that she had been out her antihypertensive medication about a month. So after given IV hypertensive medication and restart her home medication for hypertension her blood pressure is much controlled today. The patient also no longer had vaginal bleed. Advised the patient to follow up with the OBGYN as outpatient to evaluate for vaginal bleed postmenopausal. Advised her to follow up with primary care physician 1-2 weeks. Activity as tolerated. Diet per home diet. Recommend low-salt low-cholesterol diet. Physical exam: HEENT: Normocephalic atraumatic pupils equal react to light and accommodation. Extraocular muscles intact, conjunctiva pink, oropharynx moist, no thrush, no exudate. Lymphatic: No lymphadenopathy Cardiovascular exam: S1, S2 was heard. No murmurs, rubs, gallops Lung: Clear on auscultation bilaterally, no wheeze, rale, rhonchi. GI: Abdominal soft, nondistended, nontenderness, positive bowel sounds. Extremity: No crepitus, cyanosis, edema. Pedal pulses present bilateral. Full range of motion. Skin: Normal turgor, no rash. Psych: Alert, oriented x3. Neurology: No focal deficits, cranial nerve II to XII grossly intact. This medical document was created using an electronic medical record system with [employer] direct computerized dictation system. Although this document has been carefully reviewed, there may still be some phonetic and typographical errors. These areas are purely typographical due to imperfections of the software programs, and do not reflect any compromise in the patient's medical care. 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 Patient was counseled about treatment plan, medications, possible side effects, patientverbalized understanding. All questions were answered to the best of my ability. This discharge took greater then 30 minutes in planning, reviewing documentation, counseling the patient, and discussing with other team members." ASSESSMENT ASSESSMENT Assessment vaginal bleed HTN uncontrolled Date of Service: Mar 05, 2025 Billing Provider: RHIANNON BARKSDALE MD Common Visit Codes: 44709-WAL/OBS DISCH DAY >30min RHIANNON BARKSDALE MD Mar 05, 2025 12:50
[2025-03-05 13:00] VITALS: BP 145/99; PULSE 79; RESP 20; TEMP 97.5; O2SAT 96
[2025-03-05 14:07] VITALS: BP 148/92
== END 2025-03-05 15:05 | disposition home or self-care (01) | DRG 532 ==
LOC: ER 08:49 → OVERFLOW 15:11 → EAST 21:22 → TELE-EAST 03-05 07:17
PROVIDERS: ADMIT Internal Medicine; ATTEND Internal Medicine
DX: N93.9 Abnormal uterine and vaginal bleeding, unspecified (principal); F17.290 Nicotine dependence, other tobacco product, uncomplicated; I16.1 Hypertensive emergency; I10 Essential (primary) hypertension; N39.0 Urinary tract infection, site not specified; Z82.49 Family history of ischemic heart disease and other diseases of the circulatory system
CPT/HCPCS: 36415; 71045; 76830; 76856; 80048; 80053; 81001; 84484; 85025; 93005; 93306; G0378

== ENCOUNTER 2025-07-07 15:42 | Emergency (ER) | payer MEDICAID ==
[~2025-07-07] VITALS: Ht 165.1 cm; Wt 71.0 kg
[~2025-07-07 15:42] MED LIST changes: +AML5T PO; +LISI40TA16 PO
--- NOTE | 2025-07-07 16:50 | ED.PDOC ---
History of Present Illness HPI Comments This is a 59 year old female PAULETTE presenting to the ED with chief complaint of hypertension. Patient reports that her BP has been more elevated than usual for the past few days. Patient relays that her last BP was noted to be 207/120s. Patient states she is currently on Lisinopril for daily BP management. Patient denies any SOB, chest pain, dizziness, N/V, headache, or syncope. Chief Complaint: High Blood Pressure Time Seen by MD: 16:49 Primary Care Provider: NONE Reviewed Notes: Nurses Notes, Heading Repairer Notes, Medications, Allergies Allergies: Coded Allergies: NO KNOWN ALLERGIES (Unverified , 04/06/24) Home Meds Active Scripts Amlodipine Besylate (NORVASC TABLET) 5 Mg Tb, 1 TAB PO DAILY for 10 Days, #30 TAB 5 Refills Prov:RHIANNON BARKSDALE MD 03/05/25 Tramadol HCl (Tramadol HCl) 50 Mg Tab, 50 MG PO Q12HP PRN for 7 Days, #14 TAB Prov:DANNY WALDEN MD 08/29/24 Ibuprofen (Ibuprofen) 800 Mg Tab, 1 TAB PO TID, #30 TAB Prov:HIGINIO QUINTERO 04/06/24 Reported Medications Lisinopril (Lisinopril) 40 Mg Tab, 1 TAB PO DAILY, #30 TAB 5 Refills 03/04/25 Information Source: Patient, Emergency Med Personnel Mode of Arrival: EMS Severity: Moderate Timing: Days Duration: Since onset Prehospital treatment: None Medication Refill: For: Hypertension Past Medical History PAST MEDICAL HISTORY: HTN Surgical History: Denies all surgeries BOX OFFICE CLERK History: No Pertinent BOX OFFICE CLERK History Family History Family History: Reviewed,noncontributory to illness, Family hx of HTN Social History Smoker: Other Alcohol: Denies ETOH Use Drugs: Denies Drug Use Lives In: Home Constitutional: denies: chills, diaphoresis, fatigue, fever, malaise, sweats, weakness, others EENTM: denies: blurred vision, double vision, ear bleeding, ear discharge, ear drainage, ear pain, ear ringing, eye pain, eye redness, hearing loss, mouth pain, mouth swelling, nasal discharge, nose bleeding, nose congestion, nose pain, photophobia, tearing, throat pain, throat swelling, voice changes, others Respiratory: denies: cough, hemoptysis, orthopnea, SOB at rest, shortness of breath, SOB with excertion, stridor, wheezing, others Cardiovascular: denies: chest pain, dizzy spells, diaphoresis, Dyspnea on exertion, edema, irregular heart beat, left arm pain, lightheadedness, palpitations, PND, syncope, others Gastrointestinal: denies: abdomen distended, abdominal pain, blood streaked bowels, constipated, diarrhea, dysphagia, difficulty swallowing, hematemesis, melena, nausea, poor appetite, poor fluid intake, rectal bleeding, rectal pain, vomiting, others Genitourinary: denies: abnormal vagina bleeding, burning, dyspareunia, dysuria, flank pain, frequency, hematuria, incontinence, pain, , vagina discharg e, urgency, others Neurological: denies: dizziness, fainting, headache, left sided numbness, left sided weakness, numbness, paresthesia, pre-existing deficit, right sided numbness, right sided weakness, seizure, speech problems, tingling, tremors, weakness, others Musculoskeletal: denies: back pain, gout, joint pain, joint swelling, muscle pain, muscle stiffness, neck pain, others Integumetry: denies: bruises, change in color, change in hair/nails, dryness, laceration, lesions, lumps, rash, wounds, others Allergic/Immunocompromised: denies: Difficulty Healing, Frequent Infections, Hives, Itching, others Hematologic/Lymphatic: denies: anemia, blood clots, easy bleeding, easy bruising, swollen glands, others Endocrine: denies: excessive hunger, excessive sweating, excessive thirst, excessive urination, flushing, intolerance to cold, intolerance to heat, unexplained weight gain, unexplained weight loss, others Psychiatric: denies: anxiety, bipolar disorder, depression, hopeless, panic d isorder, schizophrenia, sleepless, suicidal, others All Other Systems: Reviewed and Negative Physical Exam General Appearance: Moderate Distress, Normal HEENT: Normal ENT Inspection, Pharynx Normal, TMs Normal Neck: Full Range of Motion, Non-Tender, Normal, Normal Inspection Respiratory: Chest Non-Tender, Lungs Clear, No Accessory Muscle Use, No Respiratory Distress, Normal Breath Sounds Cardiovascular: No Edema, No JVD, No Murmur, No Gallop, Normal Peripheral Pulses, Regular Rate/Rhythm Breast Exam: Deferred Gastrointestinal: No Organomegaly, Non Tender, No Pulsatile Mass, Normal Bowel Sounds, Soft Genitalia: Deferred Pelvic: Deferred Rectal: Deferred Extremities: No calf tenderness, Normal capillary refill, Normal inspection, Normal range of motion, Non-tender, No pedal edema Musculoskeletal : Apperance: Normal Neurologic: Alert, cushion spring assembler II-XII nml as Tested, No Motor Deficits, Normal Affect, Normal Mood, No Sensory Deficits Cerebellar Function: Normal Reflexes: Normal Skin: Dry, Normal Color, Warm Peripheral Pulses: 3+ Radial (R), 3+ Radial (L) Lymphatic: No Adenopathy Was a procedure done? Was a procedure done?: No Differential Dx Considerations may include: Hypertension X-Ray, Labs, Meds, VS Vital Signs Date Time Temp Pulse Resp B/P (MAP) Pulse Ox O2 Delivery O2 Flow Rate FiO2 07/07/25 17:10 98.2 97 18 181/114 (136) 98 98.2 07/07/25 17:09 181/114 07/07/25 15:50 98.4 91 16 158/92 96 98.4 Current Medications Medications (Trade) Dose Ordered Sig/Marilu Route Start Time Stop Time Status Last Admin Amlodipine Besylate (Norvasc Tablet) 10 mg ONCE ONCE PO 07/07/25 16:45 07/07/25 16:46 DC 07/07/25 17:09 Patient alert. Came in with high blood pressure. Vitals stable. Answering questions. Was given Norvasc. Denies any symptoms. Neurological examination pristine. Saturation pristine on room air. Was given prescription of clonidine. Explained to the patient. Was told to follow up with her primary care physician. Was told to come back if there is any problem. Time of 1ST Reevaluation: 17:48 Reevaluation 1ST: Improved Patient Education/Counseling: Diagnosis, Treatment Family Education/Counseling: No Family Present SEPSIS Sepsis Screen Date sepsis recognized/suspect: Jul 07, 2025 Time Sepsis recognized/suspect: 1551 Recent Procedure: No On Antibiotic Therapy: No Respiratory Rate >20: No Heart Rate >90: Yes Temp<36 C (96.8 F) or >38.3 C: No SBP <90 or MAP <65 mmHG: No New Acute Mental Status Change: No Is the patient on CPAP, BIPAP,: No Vital Signs Date Time Temp Pulse Resp B/P (MAP) Pulse Ox O2 Delivery O2 Flow Rate FiO2 07/07/25 17:10 98.2 97 18 181/114 (136) 98 98.2 07/07/25 17:09 181/114 07/07/25 15:50 98.4 91 16 158/92 96 98.4 Medications Medications Dose Ordered Sig/Marilu Route Start Time Stop Time Status Last Admin Dose Admin Amlodipine Besylate 10 mg ONCE ONCE PO 07/07/25 16:45 07/07/25 16:46 DC 07/07/25 17:09 Departure 1 Departure Time of Disposition: 17:12 Impression: Primary Impression: Hypertensive urgency Disposition: 01 HOME / SELF CARE / HOMELESS Condition: Good e-Prescriptions Clonidine Hydrochloride (Clonidine Hcl) 0.2 Mg Tab 1 TAB PO QPM for 5 Days, #5 TAB 1 Refill Prov: ERIN ISLAS MD 07/07/25 Discharged With: Self Critical Care Note Critical Care Time?: No Stability Stability form required: No Heart Score Heart Score: Heart Score Response (Comments) Value History Moderate Suspicious 1 EKG Normal 0 Age 45-64 1 Risk Factors 1 or 2 risk factors 1 Troponin Normal limit 0 Total 3 I personally scribed for ERIN ISLAS MD ([email or web address]) on 07/07/25 at 16:50. Electronically submitted by Maria Teresa Yancey ([email or web address]). ERIN ISLAS MD Jul 07, 2025 16:50
[2025-07-07] MEDS ORDERED: CLON0.2T PO (17:13)
[2025-07-07] MEDS: LORazepam 0.5 MG TAB PO ONE (17:15)
[2025-07-07 18:42] VITALS: BP 139/88; PULSE 92; RESP 18; TEMP 98.4; O2SAT 98
[2025-07-07] MEDS ORDERED: CLON0.1T PO (18:51)
== END 2025-07-07 18:51 | disposition home or self-care (01) ==
LOC: ER 15:42 → EDBD 15:42 → ER 18:51
DX: I16.0 Hypertensive urgency (principal); I10 Essential (primary) hypertension; F17.200 Nicotine dependence, unspecified, uncomplicated; Z79.899 Other long term (current) drug therapy; Z79.1 Long term (current) use of non-steroidal anti-inflammatories (NSAID)